=== PATIENT | female | born 1995 | race Caucasian/White ===

== ENCOUNTER → 2016-07-24 | Outpatient (CLI) | payer MEDICAID | LOC: MW.CHOBGYN 12:35 | PROVIDERS: ATTEND Nurse Practitioner Women's Health | DX: N91.5 Oligomenorrhea, unspecified (principal) | CPT/HCPCS: 36415; 84146; 84443; 84703 ==

== ENCOUNTER → 2016-09-26 | Outpatient (CLI) | payer MEDICAID | LOC: MW.CHOBGYN 13:35 | PROVIDERS: ATTEND Nurse Practitioner Women's Health | DX: R87.610 Atypical squamous cells of undetermined significance on cytologic smear of cervix (ASC-US) (principal); R87.810 Cervical high risk human papillomavirus (HPV) DNA test positive | CPT/HCPCS: G0145 ==